=== PATIENT | male | born 1955 ===

== ENCOUNTER 2017-10-04 07:19 | Inpatient (IN) | payer OTHER ==
[~2017-10-04] VITALS: Ht 185.4 cm; Wt 86.2 kg
[2017-10-04] MEDS ORDERED: NORVASC5 MG (07:40)
[2017-10-04] MEDS ORDERED: TOPROL XL50 M1 (07:40)
[2017-10-10] MEDS ORDERED: TOPROL XL50 M1 PO (16:32)
[2017-10-10] MEDS ORDERED: AMLODIPINE BESYL5 MG PO (16:32)
[2017-10-10] MEDS ORDERED: SURFAK240 M1 PO ×2 (17:21→17:23)
== END 2017-10-10 17:31 | disposition home or self-care (01) | DRG 390 ==
LOC: ER 07:19 → MEDJ 10-05 00:07 → SEC-K 10-05 00:07 → MEDJ 10-05 09:53
DX: K56.51 Intestinal adhesions [bands], with partial obstruction (principal); E86.0 Dehydration; I10 Essential (primary) hypertension

== ENCOUNTER 2018-05-17 10:16 | Emergency (ER) | payer OTHER ==
[~2018-05-17] VITALS: Ht 185.4 cm; Wt 86.2 kg
[~2018-05-17 10:16] MED LIST: AMLODIPINE BESYL5 MG PO; NORVASC5 MG; SURFAK240 M1 PO; TOPROL XL50 M1; TOPROL XL50 M1 PO
== END 2018-05-17 12:48 ==
LOC: ER 10:16
DX: M54.42 Lumbago with sciatica, left side (principal)

== ENCOUNTER 2022-06-10 10:20 | Emergency (ER) | payer OTHER ==
[~2022-06-10] VITALS: Ht 193 cm; Wt 83.9 kg
[2022-06-10] MEDS ORDERED: CRESTOR5 MG PO (10:36)
== END 2022-06-10 13:34 | disposition home or self-care (01) ==
LOC: ER 10:20
DX: H57.89 Other specified disorders of eye and adnexa (principal)